=== PATIENT | female | born 1985 | race Caucasian/White ===

== ENCOUNTER 2022-04-04 10:18 | Outpatient (REF) | payer BC, SELFPAY ==
[2022-04-04 14:00] LABS: Hematocrit 40.5 % (37.0-47.0); Hemoglobin 13.4 g/dl (12.0-16.0); Mean Corpuscular HGB Conc 33.1 g/dl (31.0-35.0); Mean Corpuscular Hemoglobin 30.5 pg (27.0-33.0); Mean Platelet Volume 11.3 fL (9.4-12.3); Platelet Count 245 X10*3/uL (160-400); White Blood Count 6.5 X10*3/uL (4.8-10.8)
[2022-04-04 14:39] LABS: Alanine Aminotransferase 17 U/L (0-31); Albumin Level 4.5 g/dL (3.5-5.0); Alkaline Phosphatase 58 U/L (39-117); Anion Gap 11 (12-20); Aspartate Amino Transferase 15 U/L (5-31); Bilirubin Total 0.5 mg/dL (0.0-1.0); Blood Urea Nitrogen 10 mg/dL (9-16); Calcium 9.3 mg/dL (8.4-10.2); Carbon Dioxide 25 mmol/L (22-29); Chloride 108 mmol/L (96-108); Cholesterol 149 mg/dL; Estimated Glomerular Filt Rate > 60; Glucose Fasting 89 mg/dL (60-99); HDL Cholesterol 53 mg/dL; LDL Cholesterol Calculated 84 mg/dl; Potassium 4.4 mmol/L (3.3-5.1); Sodium 140 mmol/L (135-145); TSH reflex Free T4 1.01 uIU/mL (0.32-4.0); Total Protein 7.1 g/dL (6.5-8.0); Triglycerides 62 mg/dL
== END 2022-04-04 10:19 | disposition home or self-care (01) ==
LOC: HO.WFDLDS 10:18
PROVIDERS: Visit Provider Internal Medicine
DX: Z00.00 Encounter for general adult medical examination without abnormal findings (principal)
CPT/HCPCS: 36415; 80053; 80061; 84443; 85027

== ENCOUNTER 2023-02-17 14:00 | Outpatient (AMB) | payer BC, SELFPAY ==
[2023-02-17 14:02] VITALS: BP 110/76; PULSE 81; O2SAT 96; BMI 26.1
--- NOTE | 2023-02-17 14:02 | MHC.PC.OV ---
Vital Signs 02/17/23 14:02 Height 5 ft 5 in Weight 157 lb BMI 26.1 BP 110/76 Blood Pressure Location Lt brachial Position Sitting Pulse 81 Pulse Source Pulse Oximeter Pulse Oximetry (%) 96 Oxygen Delivery Method Room Air Intake Visit Reasons: discuss mental health Intake Note: Pt is here today for a follow up visit. Allergies No Known Allergies Allergy (Verified 02/17/23 14:04) Medication List - Last Reconciled 02/17/23 by Gilma Jacobs MD ketoconazole 2% 1 appl topical multivitamin (Daily Multi-Vitamin tablet) 1 tab PO DAILY norethindrone acetate mg PO sertraline 50 mg PO DAILY Tobacco use date assessed: 02/17/23 Dental Screening Dental Screen Date: 02/17/23 Did you have a dental visit in the last 12 months?: Yes Did you have a dental problem in the last 6 months where you did not have access to dental care?: No Was dental information given to patient?: Patient has dentist HPI discuss mental health HPI Details Pt presents for f/u anxiety, improved on Zoloft PFSH Medical History Annual physical exam Headache Left eye pain Family History Father No problems noted. Mother No problems noted. 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 Silverio Madrigal, Jessenia Amor, Lucas Bishop and colleagues, with an educational judith from [employer]. Review of Systems Const All systems reviewed & are unremarkable except as noted in HPI and below Reports no additional complaints Eyes Reports no additional complaints ENT Reports no additional complaints Card Reports no additional complaints Resp Reports no additional complaints GI Reports no additional complaints Physical exam (Primary Care) Vital Signs: Last Vital Signs Pulse 81 02/17/23 14:02 BP 110/76 02/17/23 14:02 Pulse Ox 96 02/17/23 14:02 Oxygen Delivery Method Room Air 02/17/23 14:02 BMI result Body Mass Index 26.1 Tobacco/Smoking Status: Tobacco use Status Tobacco use date assessed 02/17/23 02/17/23 14:06 Patient Tobacco Use Status Never used Tobacco 02/17/23 14:06 e-Cigarette/Vaping Use Never Used 02/17/23 14:06 Thrive Assessment: Date of Thrive Assessment Date Thrive assessed 09/14/21 02/17/23 14:06 Const General: no acute distress HENMT Mouth: Normal oral and palatal mucosa present Neck Neck: Yes no lymphadenopathy and Yes supple Resp Effort & Inspection: normal respiratory effort Auscultation: clear to auscultation bilaterally Cardio Rhythm: regular rhythm Heart sounds: S1 normal heart sound present and S2 normal heart sound present GI Inspection: Yes normal to inspection Assessment and Plan Assessment & Plan (1) Anxiety: Code(s): F41.9 - Anxiety disorder, unspecified Plan: cont Zoloft, return for PE in 6 months (2) Annual physical exam: Code(s): Z00.00 - Encounter for general adult medical examination without abnormal findings Orders: Orders Complete Blood Count Auto Diff 6 Months F41.9 - Anxiety disorder, unspecified, Z00.00 - Encounter for general adult medical examination without abnormal findings Lipid Panel 6 Months F41.9 - Anxiety disorder, unspecified, Z00.00 - Encounter for general adult medical examination without abnormal findings Comprehensive [place]. Panel Fast 6 Months F41.9 - Anxiety disorder, unspecified, Z00.00 - Encounter for general adult medical examination without abnormal findings Medications: Refilled sertraline 50 mg PO DAILY 90 tabs 3RF Coding Level of Care Code Est Pt Level 3 (69817) Diagnoses Anxiety F41.9 Annual physical exam Z00.00
== END 2023-02-17 15:22 | disposition home or self-care (01) ==
PROVIDERS: PCP Internal Medicine; Visit Provider Internal Medicine
DX: F41.9 Anxiety disorder, unspecified (principal); Z00.00 Encounter for general adult medical examination without abnormal findings
CPT/HCPCS: 99213

== ENCOUNTER 2023-08-17 07:32 | Outpatient (AMB) | payer BC, SELFPAY ==
--- NOTE | 2023-08-17 07:44 | MHC.PC.OV ---
Vital Signs 08/17/23 07:47 Height 5 ft 5 in Weight 164 lb BMI 27.3 BP 110/70 Blood Pressure Location Rt brachial Position Sitting Pulse 78 Pulse Source Pulse Oximeter Pulse Oximetry (%) 98 Oxygen Delivery Method Room Air Intake Visit Reasons: Annual PE OVERDUE Intake Note: Patient here for physical exam. pt would like to talk about weight gain. Pap: scheduled in 2 weeks. Allergies No Known Allergies Allergy (Verified 08/17/23 07:48) Medication List - Last Reconciled 08/17/23 by Gilma Jacobs MD cetirizine (Zyrtec) 10 mg PO DAILY PRN ketoconazole 2% 1 appl topical norethindrone acetate mg PO sertraline 50 mg PO DAILY Tobacco use date assessed: 08/17/23 Dental Screening Dental Screen Date: 08/17/23 Did you have a dental visit in the last 12 months?: Yes Did you have a dental problem in the last 6 months where you did not have access to dental care?: No Was dental information given to patient?: Patient has dentist HPI Annual PE OVERDUE HPI Details Pt presents for PE. Patient is concerned about gaining 10 lb since her last 4 years ago and has not been able to lose it. She has been exercising on and off and eating well-balanced diet. Patient joined weight watchers 1 month ago but has not lost any weight yet. Chronic anxiety and depression is controlled on sertraline [facility] Medical History Headache Annual physical exam Left eye pain Family History Father No problems noted. Mother No problems noted. 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 How often do you have a drink containing alcohol?: Monthly or less 2. How many drinks containing alcohol do you have on a typical day when you are drinking?: 1 or 2 3. How often do you have six or more drinks on one occasion?: Never Total Score: 1 Score Reviewed/Action Taken: No SILVIO-7 AMB Questionnaire SILVIO-7 Date SILVIO - 7 assessed: 09/14/21 Source: Developed by Drs. Silverio Madrigal, Jessenia Amor, Lucas Bishop and colleagues, with an educational judith from [employer]. Review of Systems Const All systems reviewed & are unremarkable except as noted in HPI and below Reports no additional complaints Eyes Reports no additional complaints ENT Reports no additional complaints Card Reports no additional complaints Resp Reports no additional complaints GI Reports no additional complaints Reports no additional complaints Physical exam (Primary Care) Vital Signs: Last Vital Signs Pulse 78 08/17/23 07:47 BP 110/70 08/17/23 07:47 Pulse Ox 98 08/17/23 07:47 Oxygen Delivery Method Room Air 08/17/23 07:47 BMI result Body Mass Index 27.3 Tobacco/Smoking Status: Tobacco use Status Tobacco use date assessed 08/17/23 08/17/23 07:51 Patient Tobacco Use Status Never used Tobacco 08/17/23 07:51 e-Cigarette/Vaping Use Never Used 08/17/23 07:51 Thrive Assessment: Date of Thrive Assessment Date Thrive assessed 09/14/21 08/17/23 07:51 Const General: no acute distress HENMT Head: Yes normal to inspection Ears: hearing grossly normal bilaterally Face and sinus: Yes normal facial exam Mouth: Normal oral and palatal mucosa present Teeth and gingiva: dentition normal Throat: Yes posterior oropharynx normal Eyes General: appearance normal, both eyes and all related structures Neck Neck: Yes no lymphadenopathy and Yes supple Resp Effort & Inspection: normal respiratory effort Auscultation: clear to auscultation bilaterally Cardio Rhythm: regular rhythm Heart sounds: S1 normal heart sound present and S2 normal heart sound present GI Inspection: Yes normal to inspection Palpation (GI): Soft to palpation Percussion: Yes normal to percussion Auscultation: normal bowel sounds Assessment and Plan Assessment & Plan (1) Annual physical exam: Code(s): Z00.00 - Encounter for general adult medical examination without abnormal findings Plan: Well-balanced diet regular physical activity discussed with the patient. Counseling and mindfulness for chronic anxiety discussed with the patient. She follows up with email marketing manager for a Pap smear. Patient will return for fasting blood work. Physical in 1 year or p.r.n. Orders: Orders Comprehensive [place]. Panel Fast Today Z00.00 - Encounter for general adult medical examination without abnormal findings Lipid Panel Today Z. - Encounter for general adult medical examination without abnormal findings Comprehensive [place]. Panel Fast 1 Year Z. - Encounter for general adult medical examination without abnormal findings Lipid Panel 1 Year Z. - Encounter for general adult medical examination without abnormal findings TSH reflex Free T4 1 Year Z. - Encounter for general adult medical examination without abnormal findings Complete Blood Count Auto Diff Today Z00.00 - Encounter for general adult medical examination without abnormal findings TSH reflex Free T4 Today Z.00 - Encounter for general adult medical examination without abnormal findings Vitamin D 25-OH Total Today Z00.00 - Encounter for general adult medical examination without abnormal findings Complete Blood Count Auto Diff 1 Year Z00.00 - Encounter for general adult medical examination without abnormal findings Vitamin D 25-OH Total 1 Year Z00.00 - Encounter for general adult medical examination without abnormal findings Medications: Refilled sertraline 50 mg PO DAILY 90 tabs 3RF Coding Level of Care Code New Pt Prev Care 18-39yr(50137 Diagnoses Annual physical exam Z00.00
[2023-08-17 07:47] VITALS: BP 110/70; PULSE 78; O2SAT 98; BMI 27.3
== END 2023-08-17 08:19 | disposition home or self-care (01) ==
PROVIDERS: PCP Internal Medicine; Visit Provider Internal Medicine
DX: Z00.00 Encounter for general adult medical examination without abnormal findings (principal)
CPT/HCPCS: 99395

== ENCOUNTER 2023-08-17 08:20 | Outpatient (REF) | payer BC, SELFPAY ==
[2023-08-17 10:20] LABS: MANUAL DIFF FLAG NO
[2023-08-17 10:24] LABS: Basophils Absolute Auto 0.1 X10*3/uL (0.0-0.2); Basophils Percent Auto 0.7 % (0-2); Eosinophils Absolute Auto 0.1 X10*3/uL (0.0-0.4); Eosinophils Percent Auto 1.9 % (0-4); Hematocrit 43.5 % (37.0-47.0); Hemoglobin 14.7 g/dl (12.0-16.0); Imm Gran Abs Auto 0.02 X10*3/uL (0.00-0.03); Imm Gran Pct Auto 0.3 % (0.0-0.4); Lymphocytes Absolute Auto 2.8 X10*3/uL (1.2-4.9); Lymphocytes Percent Auto 40.2 % (20-40); Mean Corpuscular HGB Conc 33.8 g/dl (31.0-35.0); Mean Corpuscular Hemoglobin 31.7 pg (27.0-33.0); Monocytes Absolute Auto 0.4 X10*3/uL (0.1-1.2); Monocytes Percent Auto 6.3 % (2-11); Neutrophils Absolute Auto 3.5 x10*3/uL (2.0-8.3); Neutrophils Percent Auto 50.6 % (45-73); Platelet Count 266 X10*3/uL (160-400); Red Blood Count 4.63 X10*6/uL (4.20-5.50); Red Cell Distribution Width 12.5 % (11.0-16.0); White Blood Count 6.9 X10*3/uL (4.8-10.8)
[2023-08-17 11:12] LABS: Alanine Aminotransferase 27 U/L (0-31); Albumin Level 4.5 g/dL (3.5-5.0); Alkaline Phosphatase 83 U/L (39-117); Anion Gap 12 (12-20); Aspartate Amino Transferase 23 U/L (5-31); Bilirubin Total 0.6 mg/dL (0.0-1.0); Blood Urea Nitrogen 12 mg/dL (9-16); Calcium 9.7 mg/dL (8.4-10.2); Carbon Dioxide 25 mmol/L (22-29); Chloride 107 mmol/L (96-108); Cholesterol 177 mg/dL (<200); Estimated Glomerular Filt Rate > 60; Glucose Fasting 95 mg/dL (60-99); HDL Cholesterol 51 mg/dL (>40); LDL Cholesterol Calculated 106 mg/dL (<100); Potassium 4.3 mmol/L (3.3-5.1); Sodium 140 mmol/L (135-145); TSH reflex Free T4 1.34 uIU/mL (0.32-4.0); Total Protein 7.5 g/dL (6.5-8.0); Triglycerides 102 mg/dL (<150); Vitamin D 25-OH Total 51.4 ng/mL (>30)
== END 2023-08-17 08:21 | disposition home or self-care (01) ==
LOC: HO.HMGCLDS 08:20
PROVIDERS: PCP Internal Medicine; Visit Provider Internal Medicine
DX: Z00.00 Encounter for general adult medical examination without abnormal findings (principal); Z13.6 Encounter for screening for cardiovascular disorders; F41.9 Anxiety disorder, unspecified
CPT/HCPCS: 36415; 80053; 80061; 82306; 84443; 85025

== ENCOUNTER 2023-10-26 15:38 | Outpatient (AMB) | payer BC, SELFPAY ==
[2023-10-26 15:54] VITALS: BP 120/80; PULSE 74; TEMP 36.8; O2SAT 98
--- NOTE | 2023-10-26 15:54 | AM.OFFWIN_ITS ---
Intake Vital Signs 10/26/23 15:54 Height 5 ft 5 in BP 120/80 Blood Pressure Location Rt brachial Position Sitting Pulse 74 Pulse Source Pulse Oximeter Temp 98.3 F Temp Source Oral Pulse Oximetry (%) 98 Oxygen Delivery Method Room Air Intake Visit Reasons: EP Shaky, fatigue, bp, dizzy, arm feel heavy Intake Note: pt is here for shakiness, fatigue, states high blood pressure readings Patient Tobacco Use Status: Never used Tobacco Allergies No Known Allergies Allergy (Verified 10/26/23 15:55) Do you need a note to return to daycare/school/sports/work: No HPI HPI Comments History of Present Illness Details 38 y/o female patient who [facility] with c/o elevated BP readings associated with feeling fatigued and Arm heavyness. Pt reports feeling anxious all the time. Pt reports feeling dizzy. Pt was seen and evaluated @ [facility]. EKG and Troponin WNL. Thyroid levels WNL. Pt does endorse Anxiety history and currently takes Sertraline. [facility] Medical History (Updated 10/26/23 @ 16:59 by Rosalind Mcgregor NP) Elevated blood pressure reading in office without diagnosis of hypertension Headache Annual physical exam Left eye pain Family History Father No problems noted. Mother No problems noted. 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, teacher Housing: House Patient Tobacco Use Status: Never used Tobacco e-Cigarette/Vaping Use: Never Used Second Hand Smoke Exposure: No Current occupational status: employed Cognitive needs: No Hearing needs: No Vision needs: Yes Review of Systems Const All systems reviewed & are unremarkable except as noted in HPI and below Physical Exam Vital Signs: Last Vital Signs Temp 98.3 F 10/26/23 15:54 Pulse 74 10/26/23 15:54 BP 120/80 10/26/23 15:54 Pulse Ox 98 10/26/23 15:54 Oxygen Delivery Method Room Air 10/26/23 15:54 Const General: comfortable and no acute distress Nutritional Appearance: overweight Orientation/consciousness: patient oriented x3 Resp Effort & Inspection: normal respiratory effort Auscultation: clear to auscultation bilaterally, no crackles, no rales, no rhonchi and no wheezes Cardio Rate: regular rate Rhythm: regular rhythm Neuro General: patient oriented x3, gait normal and moves all extremities Psych Speech and movement: Normal speech and movement present Affect: normal affect Attitude: cooperative Assessment & Plan Assessment & Plan (1) Anxiety: Code(s): F41.9 - Anxiety disorder, unspecified Plan: - Advised to F/U with PCP for medication changes if indicated. - Recomm Mental health therapy. - Denies SA or SI (2) Elevated blood pressure reading in office without diagnosis of hypertension: Code(s): R03.0 - Elevated blood-pressure reading, without diagnosis of hypertension Plan: - Advised to monitor BP at home and keep Log - F/u with PCP if Treatment is indicated. - Lifestyle changes - DASH diet. Coding Level of Care Code Est Pt Level 3 (46419) Diagnoses Anxiety F41.9 Elevated blood pressure reading in office without diagnosis of hypertension R03.0 Time Spent (min) 15
== END 2023-10-26 16:35 | disposition home or self-care (01) ==
PROVIDERS: PCP Internal Medicine; Visit Provider Nurse Practitioner Family
DX: F41.9 Anxiety disorder, unspecified (principal); R03.0 Elevated blood-pressure reading, without diagnosis of hypertension
CPT/HCPCS: 99213

== ENCOUNTER 2023-11-27 13:59 | Outpatient (AMB) | payer BC, SELFPAY ==
--- NOTE | 2023-11-27 14:01 | A.OFFPC_ITS ---
Vital Signs 11/27/23 14:02 Height 5 ft 5 in Weight 169 lb BMI 28.1 BP 128/80 Blood Pressure Location Lt brachial Position Sitting Pulse 65 Pulse Source Pulse Oximeter Pulse Oximetry (%) 98 Oxygen Delivery Method Room Air Intake Visit Reasons: ER follow up Intake Note: Pt is here today for ER follow up visit. Allergies misoprostol Allergy (Verified 11/27/23 14:05) high fever Tobacco use date assessed: 08/17/23 Dental Screening Dental Screen Date: 08/17/23 HPI ER follow up HPI Details Patient presents for the follow-up of ER visit for increase blood pressure. Patient has been under lot of stress her grandmother is on hospice. Patient has been exercising for the last 2 weeks and denies chest pain shortness or breath headaches. She has been monitor her blood pressure at home with readings of 120/80 or less. Anxiety has been controlled on sertraline. [facility] Medical History Elevated blood pressure reading in office without diagnosis of hypertension Headache Annual physical exam Left eye pain Surgical History No pertinent past surgical history Family History Father No problems noted. Mother No problems noted. 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 Silverio Madrigal, Jessenia Amor, Lucas Bishop and colleagues, with an educational judith from [employer]. Review of Systems Const All systems reviewed & are unremarkable except as noted in HPI and below Reports no additional complaints Eyes Reports no additional complaints ENT Reports no additional complaints Card Reports no additional complaints Resp Reports no additional complaints GI Reports no additional complaints Physical exam (Primary Care) Vital Signs: Last Vital Signs Pulse 65 11/27/23 14:02 BP 128/80 11/27/23 14:02 Pulse Ox 98 11/27/23 14:02 Oxygen Delivery Method Room Air 11/27/23 14:02 BMI result Body Mass Index 28.1 Tobacco/Smoking Status: Tobacco use Status Tobacco use date assessed 08/17/23 11/27/23 14:02 Patient Tobacco Use Status Never used Tobacco 11/27/23 14:02 e-Cigarette/Vaping Use Never Used 11/27/23 14:02 Thrive Assessment: Date of Thrive Assessment Date Thrive assessed 09/14/21 11/27/23 14:02 Const General: no acute distress HENMT Head: Yes normal to inspection Ears: hearing grossly normal bilaterally General nose exam: Normal external nose present Face and sinus: Yes normal facial exam Mouth: Normal oral and palatal mucosa present Throat: Yes posterior oropharynx normal Eyes General: appearance normal, both eyes and all related structures Neck Neck: Yes no lymphadenopathy and Yes supple Resp Effort & Inspection: normal respiratory effort Auscultation: clear to auscultation bilaterally Cardio Rhythm: regular rhythm Heart sounds: S1 normal heart sound present and S2 normal heart sound present Assessment and Plan Assessment & Plan (1) Elevated blood pressure reading in office without diagnosis of hypertension: Code(s): R03.0 - Elevated blood-pressure reading, without diagnosis of hypertension Plan: Continue regular cardiovascular exercise avoid salt and monitor blood pressure at home (2) Anxiety: Comment: Controlled on sertraline Code(s): F41.9 - Anxiety disorder, unspecified Plan: Continue sertraline Coding Level of Care Code Est Pt Level 3 (81612) Diagnoses Elevated blood pressure reading in office without diagnosis of hypertension R03.0 Anxiety F41.9
[2023-11-27 14:02] VITALS: BP 128/80; PULSE 65; O2SAT 98; BMI 28.1
== END 2023-11-27 14:27 | disposition home or self-care (01) ==
PROVIDERS: PCP Internal Medicine; Visit Provider Internal Medicine
DX: R03.0 Elevated blood-pressure reading, without diagnosis of hypertension (principal); F41.9 Anxiety disorder, unspecified
CPT/HCPCS: 99213

== ENCOUNTER 2024-06-17 06:53 | Outpatient (REF) | payer BC, SELFPAY ==
--- OUTSIDE RECORDS SUMMARY | 2024-06-17 06:56 | XMS_ITS | Clinical Summary ---
Author Organization [address] Address [address] [place] [id number] Care Team Providers Care Peer Financial Counselor Name Role Phone Gilma Jacobs MD Primary Care Provider Allergies No known active allergies Medications sertraline (ZOLOFT) 50 mg tablet Take 1 tablet (50 mg total) by mouth daily. 11/26/2023 Active NURTEC ODT 75 mg TbDL TAKE 1 TABLET EVERY 24 HOURS NEEDED FOR MIGRAINE HEADACHE NOT TO EXCEED 75 MG IN 24 HOURS 01/20/2024 Active norethindrone (AYGESTIN) 5 mg tablet Take 1 tablet (5 mg total) by mouth daily. 12/16/2023 Active Active Problems Problem Noted Date Diagnosed Date Acute non-recurrent frontal sinusitis 02/02/2024 Social History Tobacco Use Types Packs/Day Years Used Date Smoking Tobacco: Never Smokeless Tobacco: Never Alcohol Use Standard Drinks/Week Comments Not Currently 0 (1 standard drink = 0.6 oz pur e alcohol) Comments Unknown Sex and Gender Information Value Date Recorded Sex Assigned at Not on file Legal Sex Female 9:46 AM EDT Gender Identity Not on file Sexual Orientation Not on file Last Filed Vital Signs Vital Sign Reading Time Taken Comments Blood Pressure 134/92 02/02/2024 12:51 PM EDT Pulse 80 02/02/2024 12:51 PM EDT Temperature 36.8 ??C (98.3 ??F) 02/02/2024 12:51 PM E DT Respiratory Rate 16 02/02/2024 12:51 PM EDT Oxygen Saturation 100% 02/02/2024 12:51 PM EDT Inhaled Oxygen Concentration - - Weight 74.8 kg (165 lb) 02/02/2024 12:51 PM EDT Height 165.1 cm (5' 5 ) 02/02/2024 12:51 PM EDT Body Mass Index 27.46 02/02/2024 12:51 PM EDT Plan of Treatment Health Maintenance Due Date Last Done Comments HIV screening 01/25/1997 Hepatitis C screening 01/25/2002 Cervical cancer screening 01/25/2005 Influenza vaccine 12/14/2023 02/17/2020, , 01/29/2018, Additional history exists Covid-19 vaccine series ( season) 2024 Breast cancer screening 2024 Lipid disorder screening 2024 Tetanus adult (Td q 10,TDAP once) 02/16/2030 02/17/2020, 07/31/2013 RSV Discussion (1 - 1-dose 75+ series) 01/25/2059 Meningococcal Vaccine Aged Out No jeffery tyesha eligible based on patient's age to complete this topic Pneumococcal Vaccine Aged Out No long er eligible based on patient's age to complete this topic Insurance BCBS BCBS Member Subscriber Plan / Payer (Ef fective 2016-Present) Name:Dominic Morris Relation to Subscriber:Self Name:Dominic Morris Payer ID:[id number] (NAIC) Type:Not on file Address: [facility] [address] [id number] Care Teams Peer Financial Counselor Relationship Specialty Start Date End Date Gilma Jacobs MD [facility] [place] [address] [place] [address] PCP - General Internal Medicine 02/02/24
--- OUTSIDE RECORDS SUMMARY | 2024-06-17 06:56 | XMS_ITS | Clinical Summary ---
Author Organization [facility] Address [address] [place] [address] Care Team Providers Care Service Vehicle Operator Name Role Phone Gilma Jacobs MD Primary Care Provider [phone] Allergies No known active allergies Medications Medication Sig Dispensed Refills Start Date End Date Status Multiple Vitamin (multivitamin) capsule Take 1 capsule by mouth daily. Active norethindrone (AYGESTIN) 5 MG tablet Take 5 mg by mouth daily. 10/19/2022 Active sertraline (ZOLOFT) 50 MG tablet Take 50 mg by mouth daily. 11/16/2022 Active Social History Tobacco Use Types Packs/Day Years Used Date Smoking Tobacco: Never Assessed Sex and Gender Information Value Date Recorded Sex Assigned at Not on file Gender Identity Not on file Sexual Orientation Not on file Last Filed Vital Signs Vital Sign Reading Time Taken Comments Blood Pressure 130/88 12/01/2022 6:58 PM EDT Pulse 84 12/01/2022 6:58 PM EDT Temperature 37.4 ??C (99.4 ??F) 12/01/2022 6:58 PM ED T Respiratory Rate - - Oxygen Saturation 97% 12/01/2022 6:58 PM EDT Inhaled Oxygen Concentration - - Weight 70.3 kg (155 lb) 12/01/2022 6:58 PM EDT Height 165.1 cm (5' 5 ) 12/01/2022 6:58 PM EDT Body Mass Index 25.79 12/01/2022 6:58 PM EDT Plan of Treatment Health Maintenance Due Date Last Done Comments Hepatitis C Virus Screening 1984 HIV Screening 01/25/1997 DTaP/Tdap/Td Vaccines (1 - Tdap) 01/25/2003 Hepatitis B Vaccines (1 of 3 - 19+ 3-dose series) 01/25/2003 Pap Smear (Ages 21-65) 01/25/2005 Influenza Vaccine 12/14/2023 02/17/2020, , 01/29/2018, Additional history exists COVID-19 Vaccine (2023- season) 2024 Mammogram 2024 HPV Vaccines Aged Out No longer eligi ble based on patient's age to complete this topic Pneumococcal Vaccine: Pediatric (0-5 Years) and At-Risk Patients (6 to 49 Years) Aged Out No longer eligible based on patient's age to complete this topic Care Teams Service Vehicle Operator Relationship Specialty Start Date End Date Gilma Jacobs MD [address] [place] [address] PCP - General 12/01/22
--- OUTSIDE RECORDS SUMMARY | 2024-06-17 06:56 | XMS_ITS ---
Author Name [facility] Organization Unknown History of Medication Use Medication Directions Dispensed Refills Start Date End Date Stat us sertraline (ZOLOFT) 50 MG tablet Take 50 mg by mouth daily. 11/16/2022 active rimegepant (Nurtec) 75 mg disintegrating tablet Take 75 mg by mouth. 07/21/2022 03/24/2023 active sertraline (ZOLOFT) 50 mg tablet Take 1 tablet (50 mg total) by mouth daily. 11/26/2023 active Multiple Vitamin (multivitamin) capsule Take 1 capsule by mouth daily. active Problems Problem Status Onset Date Problem Type Date of Resoluti on Source Acute non-recurrent frontal sinusitis active 2024-02-02 [address] [facility] Sore throat active EncounterDiagnosisAct CCT
[2024-06-17 10:25] LABS: MANUAL DIFF FLAG NO
[2024-06-17 10:26] LABS: Appearance Urine Cloudy; Color Urine Yellow; Glucose Urine UA Negative (Negative); Leukocyte Esterase Urine Negative (Negative); Nitrite Urine Negative (Negative); Urine Blood Negative (Negative); Urine Ketones Negative (Negative); Urine Protein Negative (Neg-Trace)
[2024-06-17 10:30] LABS: Bacteria Urine 2+ (None Seen); Hyaline Casts Urine 0-2 /LPF (0-2); RBC Urine 0-2 /HPF (0-2); Squamous Epithelial Cell Urine >20 /HPF (0-2); WBC Urine 0-5 /HPF (0-5)
[2024-06-17 10:31] LABS: Basophils Absolute Auto 0.1 X10*3/uL (0.0-0.2); Basophils Percent Auto 0.7 % (0-2); Eosinophils Absolute Auto 0.2 X10*3/uL (0.0-0.4); Eosinophils Percent Auto 2.9 % (0-4); Hemoglobin 13.7 g/dl (12.0-16.0); Imm Gran Abs Auto 0.02 X10*3/uL (0.00-0.03); Imm Gran Pct Auto 0.3 % (0.0-0.4); Lymphocytes Absolute Auto 2.9 X10*3/uL (1.2-4.9); Lymphocytes Percent Auto 42.1 % (20-40); Mean Corpuscular HGB Conc 34.3 g/dl (31.0-35.0); Mean Corpuscular Hemoglobin 31.3 pg (27.0-33.0); Mean Corpuscular Volume 91.3 fL (80.0-98.0); Mean Platelet Volume 11.1 fL (9.4-12.3); Monocytes Absolute Auto 0.6 X10*3/uL (0.1-1.2); Monocytes Percent Auto 8.5 % (2-11); Neutrophils Absolute Auto 3.2 x10*3/uL (2.0-8.3); Neutrophils Percent Auto 45.5 % (45-73); Platelet Count 264 X10*3/uL (160-400); Red Blood Count 4.38 X10*6/uL (4.20-5.50); Red Cell Distribution Width 12.1 % (11.0-16.0); White Blood Count 6.9 X10*3/uL (4.8-10.8)
[2024-06-17 10:56] LABS: Alanine Aminotransferase 42 U/L (0-31); Albumin Level 4.1 g/dL (3.5-5.0); Alkaline Phosphatase 81 U/L (39-117); Anion Gap 9 (12-20); Aspartate Amino Transferase 27 U/L (5-31); Bilirubin Total 0.4 mg/dL (0.0-1.0); Blood Urea Nitrogen 8 mg/dL (9-16); Calcium 8.6 mg/dL (8.4-10.2); Carbon Dioxide 23 mmol/L (22-29); Chloride 112 mmol/L (96-108); Cholesterol 133 mg/dL (<200); Estimated Glomerular Filt Rate > 60; Glucose Fasting 95 mg/dL (60-99); HDL Cholesterol 37 mg/dL (>40); Iron 119 mcg/dL (30-160); LDL Cholesterol Calculated 58 mg/dL (<100); Percent Iron Saturation 55 % (15-50); Potassium 3.9 mmol/L (3.3-5.1); Sodium 140 mmol/L (135-145); Total Iron Binding Capacity 218 mcg/dL (228-428); Total Protein 6.9 g/dL (6.5-8.0); Triglycerides 194 mg/dL (<150); Unsaturated Iron Binding 99 ug/dL
[2024-06-17 11:13] LABS: TSH reflex Free T4 2.01 uIU/mL (0.32-4.0); Vitamin D 25-OH Total 63.2 ng/mL (>30)
[2024-06-17 12:35] LABS: Vitamin B12 281 pg/mL (200-900)
== END 2024-06-17 06:54 | disposition home or self-care (01) ==
LOC: HO.HMGCLDS 06:53
PROVIDERS: PCP Internal Medicine; Visit Provider Internal Medicine
DX: Z00.00 Encounter for general adult medical examination without abnormal findings (principal); R53.83 Other fatigue; R03.0 Elevated blood-pressure reading, without diagnosis of hypertension
CPT/HCPCS: 36415; 80053; 80061; 81001; 82306; 82607; 83540; 84443; 84481; 85025

== ENCOUNTER 2024-06-20 12:25 | Outpatient (REF) | payer BC, SELFPAY ==
--- OUTSIDE RECORDS SUMMARY | 2024-06-20 14:15 | XMS_ITS | Clinical Summary ---
Author Organization [facility] Address [address] [place] [address] Care Team Providers Care Director Center Name Role Phone Gilma Jacobs MD Primary Care Provider Allergies No known active allergies Medications Medication [...] age to complete this topic Care Teams Director Center Relationship Specialty Start Date End Date Gilma Jacobs MD [address] [place] [address] PCP - General 12/01/22
--- OUTSIDE RECORDS SUMMARY | 2024-06-20 14:15 | XMS_ITS | Clinical Summary ---
Author Organization [address] Address [address] [place] [id number] Care Team Providers Care Environmental Services Lead Name Role Phone Gilma Jacobs MD Primary Care Provider [phone] Allergies No known active allergies Medications sertraline [...] Payer ID:[id number] (NAIC) Type:Not on file Address: [facility] [address] [id number] Care Teams Environmental Services Lead Relationship Specialty Start Date End Date Gilma Jacobs MD [facility] [place] [address] PCP - General Internal Medicine 02/02/24
[2024-06-21 19:39] LABS: Follicle Stimulating Hormone 8.2 mIU/mL
== END 2024-06-20 12:26 | disposition home or self-care (01) ==
LOC: HO.HMGCLDS 12:25
PROVIDERS: PCP Internal Medicine; Visit Provider Internal Medicine
DX: N95.1 Menopausal and female climacteric states (principal); F41.9 Anxiety disorder, unspecified
CPT/HCPCS: 36415; 83001; 96127

== ENCOUNTER 2024-07-18 10:53 | Outpatient (AMB) | payer BC, SELFPAY ==
[2024-07-18 11:03] VITALS: BP 126/82; PULSE 87; RESP 18; TEMP 37.1; O2SAT 97
--- NOTE | 2024-07-18 11:03 | MHC.PC.OV ---
Vital Signs 07/18/24 11:03 Height 5 ft 5 in Weight 180 lb BMI 30.0 BP 126/82 Blood Pressure Location Lt brachial Position Sitting Respiration 18 Pulse 87 Pulse Source Pulse Oximeter Temp 98.7 F Temp Source Oral Pulse Oximetry (%) 97 Oxygen Delivery Method Room Air Intake Visit Reasons: 1m follow up Intake Note: Pt is here today for 1 month follow up visit. Allergies misoprostol Allergy (Verified 07/18/24 11:06) high fever Medication List - Last Reconciled 07/18/24 by Gilma Jacobs MD cetirizine (Zyrtec) 10 mg PO DAILY PRN norethindrone acetate mg PO sertraline 75 mg (1.5 x 50 mg) PO DAILY Wegovy (semaglutide (weight loss)) 0.25 mg (0.5 mL) subcut QWEEK NS Tobacco use date assessed: 06/20/24 Dental Screening Dental Screen Date: 06/20/24 HPI 1m follow up HPI Details Pt presents for follow-up of chronic anxiety and depression. She reports feeling calmer on sertraline but reports episodes of feeling angry about her inability to lose weight despite exercising and eating well-balanced diet for over 6 months. Patient has been trying to established with psychologist. She denies suicide ideation. [facility] Medical History Elevated blood pressure reading in office without diagnosis of hypertension Headache Annual physical exam Left eye pain Surgical History No pertinent past surgical history Family History Father No problems noted. Mother No problems noted. 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 1. Little interest or pleasure in doing things: more than half the days 2. Feeling down, depressed, or hopeless: more than half the days 3. Trouble falling or staying asleep, or sleeping too much: more than half the days 4. Feeling tired or having little energy: more than half the days 5. Poor appetite or overeating: several days 6. Feeling bad about yourself - or that you are a failure or have let yourself or your family down: more than half the days 7. Trouble concentrating on things, such as reading the newspaper or watching television: several days 8. Moving or speaking so slowly that other people could have noticed. Or the opposite - being so fidgety or restless that you have been moving around a lot more than usual: several days 9. Thoughts that you would be better off or of hurting yourself in some way: not at all Total score: 13 Depression Screening Interpretation: Positive (Referred to a counselor continue sertraline) Depression Screening Follow-up: Existing condition and In treatment Depression Screening Done: Yes 01826 - PHQ-9 Billing: Yes Source: Developed by Drs. Silverio Madrigal, Jessenia Amor, Lucas Bishop and colleagues, with an educational judith from [employer]. Thrive Questionnaire Date Thrive assessed: 06/13/24 I am a: Patient What is your living situation today?: I have a steady place to live Within the past 12 months, did the food you bought not last and you didn't have the money to get more?: Never true Within the past 12 months, did you worry whether your food would run out before you got money to buy more?: Never true Do you have trouble paying for medicines?: No Do you have trouble getting transportation to medical appointments?: No Do you have trouble paying your heating and electricity bill?: No Do you have trouble taking care of your child, family member or friend?: No Do you have trouble with day-to-day activities such as bathing, preparing meals, shopping, managing finances, etc.?: No Are you currently unemployed and looking for a job?: No Are you interested in more education?: No Please select the resources that you would like help with: None Currently or been in a relationship where the following occur: No concerns reported THRIVE Score: 0 SILVIO-7 AMB Questionnaire SILVIO-7 Date SILVIO - 7 assessed: 06/20/24 Source: Developed by Drs. Silverio Madrigal, Jessenia Amor, Lucas Bishop and colleagues, with an educational judith from [employer]. Review of Systems Const All systems reviewed & are unremarkable except as noted in HPI and below Eyes Reports no additional complaints ENT Reports no additional complaints Card Reports no additional complaints Resp Reports no additional complaints GI Reports no additional complaints Reports no additional complaints Physical exam (Primary Care) Vital Signs: Last Vital Signs Temp 98.7 F 07/18/24 11:03 Pulse 87 07/18/24 11:03 Resp 18 07/18/24 11:03 BP 126/82 07/18/24 11:03 Pulse Ox 97 07/18/24 11:03 Oxygen Delivery Method Room Air 07/18/24 11:03 BMI result Body Mass Index 30.0 Tobacco/Smoking Status: Tobacco use Status Tobacco use date assessed 06/20/24 07/18/24 11:09 Patient Tobacco Use Status Never used Tobacco 07/18/24 11:09 e-Cigarette/Vaping Use Never Used 07/18/24 11:09 PHQ-9: PHQ-9 Score PHQ-9: Total score 13 07/18/24 12:13 Depression Screening Interpretation: Positive (Referred to a counselor continue sertraline) Depression Screening Follow-up: Existing condition and In treatment Thrive Assessment: Date of Thrive Assessment Date Thrive assessed 06/13/24 07/18/24 11:09 Currently or been in a relationship where the following occur: No concerns reported Const General: no acute distress HENMT Face and sinus: Yes normal facial exam Resp Effort & Inspection: normal respiratory effort Auscultation: clear to auscultation bilaterally Cardio Rhythm: regular rhythm Heart sounds: S1 normal heart sound present and S2 normal heart sound present Coding Level of Care Code Est Pt Level 3 (71632) Diagnoses Anxiety F41.9 Overweight E66.3 Additional Codes PHQ-9 - 51980 - PHQ-9 Billing: Yes ([id number]) Assessment & Plan Assessment & Plan (1) Anxiety: Comment: Controlled on sertraline Code(s): F41.9 - Anxiety disorder, unspecified Category: Medical Plan: CONTINUE SERTRALINE START COUNSELING, stress management discussed with the patient. (2) Overweight: Comment: BMI 30.1 06/2024 Code(s): E66.3 - Overweight Category: Medical Plan: She has has not been able to lose weight despite decreasing caloric intake and increasing physical activity for over 6 months. Wegovy 0.25 weekly will be started patient will follow-up in 1 month Medications: New Wegovy (semaglutide (weight loss)) administer weeks 1 through 4 of therapy 0.25 mg (0.5 mL) subcut QWEEK 2 mL 1RF NS
--- OUTSIDE RECORDS SUMMARY | 2024-07-18 13:11 | XMS_ITS | Clinical Summary ---
Author Organization [address] Address [address] [place] [id number] Care Team Providers Care Flight Controls Engineer Name Role Phone Gilma Jacobs MD Primary Care Provider [phone] Allergies No known active allergies Medications sertraline [...] age to complete this topic Pneumococcal Vaccine (2 - 49 years) Aged Out No longer eligible based on patient's age to complete this topic Insurance BCBS BS Care Teams Flight Controls Engineer Relationship Specialty Start Date End Date Gilma Jacobs MD [facility] [place] [id number] PCP - General Internal Medicine 02/02/24
--- OUTSIDE RECORDS SUMMARY | 2024-07-18 13:11 | XMS_ITS | Clinical Summary ---
Author Organization [facility] Address [address] [place] [address] Care Team Providers Care Final Touch Up Painter Name Role Phone Gilma Jacobs MD Primary Care Provider [phone] Allergies No known active allergies Medications Medication [...] age to complete this topic Care Teams Final Touch Up Painter Relationship Specialty Start Date End Date Gilma Jacobs MD [address] [place] [address] PCP - General 12/01/22
== END 2024-07-18 12:48 | disposition home or self-care (01) ==
PROVIDERS: PCP Internal Medicine; Visit Provider Internal Medicine
DX: F41.9 Anxiety disorder, unspecified (principal); E66.3 Overweight

== ENCOUNTER → 2024-07-18 10:53 | Outpatient (BNVA) | payer BC, SELFPAY | PROVIDERS: PCP Internal Medicine; Visit Provider Internal Medicine | DX: F41.9 Anxiety disorder, unspecified (principal); E66.3 Overweight; Z68.30 Body mass index [BMI] 30.0-30.9, adult; Z79.899 Other long term (current) drug therapy | CPT/HCPCS: 96127 ==

== ENCOUNTER 2024-08-21 11:56 | Outpatient (AMB) | payer BC, SELFPAY ==
[2024-08-21 11:57] VITALS: BP 118/80; PULSE 81; RESP 18; TEMP 36.8; O2SAT 98; BMI 29.6
--- NOTE | 2024-08-21 11:57 | MHC.PC.OV ---
Vital Signs 08/21/24 11:57 Height 5 ft 5 in Weight 178 lb BMI 29.6 BP 118/80 Blood Pressure Location Lt brachial Position Sitting Respiration 18 Pulse 81 Pulse Source Pulse Oximeter Temp 98.3 F Temp Source Oral Pulse Oximetry (%) 98 Oxygen Delivery Method Room Air Intake Visit Reasons: PE Intake Note: Pt is here today for PE. Allergies misoprostol Allergy (Verified 08/21/24 11:59) high fever Tobacco use date assessed: 08/21/24 Dental Screening Dental Screen Date: 06/20/24 HPI PE HPI Details Patient presents for physical. She is has been tolerating Wegovy well. She has been decreasing caloric intake and increasing physical activity. Chronic anxiety stable on sertraline. Patient will be starting counseling. [facility] Medical History (Updated 08/21/24 @ 12:24 by Gilma Jacobs MD) Elevated blood pressure reading in office without diagnosis of hypertension Headache Annual physical exam Left eye pain Surgical History No pertinent past surgical history Family History Father No problems noted. Mother No problems noted. 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, teacher Housing: House Patient Tobacco Use Status: Never used Tobacco e-Cigarette/Vaping Use: Never Used Second Hand Smoke Exposure: No service: No Current occupational status: employed Cognitive needs: No Hearing needs: No Vision needs: Yes Questionnaire Thrive Questionnaire Date Thrive assessed: 08/21/24 I am a: Patient What is your living situation today?: I have a steady place to live Within the past 12 months, did the food you bought not last and you didn't have the money to get more?: Never true Within the past 12 months, did you worry whether your food would run out before you got money to buy more?: Never true Do you have trouble paying for medicines?: No Do you have trouble getting transportation to medical appointments?: No Do you have trouble paying your heating and electricity bill?: No Do you have trouble taking care of your child, family member or friend?: No Do you have trouble with day-to-day activities such as bathing, preparing meals, shopping, managing finances, etc.?: No Are you currently unemployed and looking for a job?: No Are you interested in more education?: No Please select the resources that you would like help with: None Currently or been in a relationship where the following occur: No concerns reported THRIVE Score: 0 SILVIO-7 AMB Questionnaire SILVIO-7 Date SILVIO - 7 assessed: 08/21/24 Feeling nervous, anxious, or on edge: 0 = Not at all Not being able to stop or control worryin = Not at all Worrying too much about different things: 0 = Not at all Trouble relaxin = Not at all Being so restless that it is hard to sit still: 0 = Not at all Becoming easily annoyed or irritable: 0 = Not at all Feeling afraid as if something awful might happen: 0 = Not at all Total SILVIO-7 score (0-4 normal; 5-9 mild; 10-14 moderate; 15-21 severe): 0 Source: Developed by Drs. Silverio Madrigal, Jessenia Amor, Lucas Bishop and colleagues, with an educational judith from [employer]. SILVIO-7 Assessment Billing SILVIO-7 Assessment Tool: SILVIO-7 Assessment 24823 Review of Systems Const All systems reviewed & are unremarkable except as noted in HPI and below Reports no additional complaints Eyes Reports no additional complaints ENT Reports no additional complaints Card Reports no additional complaints Resp Reports no additional complaints Reports no additional complaints Physical exam (Primary Care) Vital Signs: Last Vital Signs Temp 98.3 F 08/21/24 11:57 Pulse 81 08/21/24 11:57 Resp 18 08/21/24 11:57 BP 118/80 08/21/24 11:57 Pulse Ox 98 08/21/24 11:57 Oxygen Delivery Method Room Air 08/21/24 11:57 BMI result Body Mass Index 29.6 Tobacco/Smoking Status: Tobacco use Status Tobacco use date assessed 08/21/24 08/21/24 12:04 Patient Tobacco Use Status Never used Tobacco 08/21/24 12:04 e-Cigarette/Vaping Use Never Used 08/21/24 12:04 Thrive Assessment: Date of Thrive Assessment Date Thrive assessed 08/21/24 08/21/24 12:04 Currently or been in a relationship where the following occur: No concerns reported Const General: no acute distress HENMT Head: Yes normal to inspection Face and sinus: Yes normal facial exam Throat: Yes posterior oropharynx normal Eyes General: appearance normal, both eyes and all related structures Neck Neck: Yes no lymphadenopathy and Yes supple Resp Effort & Inspection: normal respiratory effort Auscultation: clear to auscultation bilaterally Cardio Rhythm: regular rhythm Heart sounds: S1 normal heart sound present and S2 normal heart sound present GI Inspection: Yes normal to inspection Palpation (GI): Soft to palpation Percussion: Yes normal to percussion Auscultation: normal bowel sounds Coding Level of Care Code Est Pt Prev Care 40-64y(04697) Diagnoses Normal pelvic exam Z01.419 Overweight E66.3 Annual physical exam Z00.00 Anxiety F41.9 Additional Codes SILVIO-7 Assessment Billing - SILVIO-7 Assessment Tool: SILVIO-7 Assessment 72622 ([id number]) Assessment & Plan Assessment & Plan (1) Normal pelvic exam: Comment: 06/2023 by chair and couch maker Code(s): Z01.419 - Encounter for gynecological examination (general) (routine) without abnormal findings Category: Medical Plan: Established with chair and couch maker (2) Overweight: Comment: BMI 30.1 06/2024 Code(s): E66.3 - Overweight Category: Medical Plan: Continue Wegovy decreasing caloric intake regular physical activity. Patient will increase Wegovy to 1 mg next month if she tolerates it well. Follow-up in 3 months (3) Annual physical exam: Code(s): Z00.00 - Encounter for general adult medical examination without abnormal findings Category: Medical Plan: Well-balanced diet regular physical activity discussed with the patient (4) Anxiety: Comment: Controlled on sertraline Code(s): F41.9 - Anxiety disorder, unspecified Category: Medical Plan: Continue sertraline patient will start counseling
--- OUTSIDE RECORDS SUMMARY | 2024-08-21 14:04 | XMS_ITS | Clinical Summary ---
Author Organization [address] Address [address] [place] [id number] Care Team Providers Care Software Project Manager Name Role Phone Gilma Jacobs MD Primary Care Provider [phone] Allergies No known active allergies Medications sertraline [...] C screening 01/25/2002 Cervical cancer screening 01/25/2005 Covid-19 vaccine series ( season) 2024 Breast cancer screening 2024 Lipid disorder screening 2024 Influenza vaccine 01/13/2025 02/17/2020, , 01/29/2018, Additional history exists Tetanus adult (Td q 10,TDAP once) 02/16/2030 02/17/2020, 07/31/2013 RSV Immunization (1 - 1-dose 75+ series) 01/25/2059 Meningococcal Vaccine Aged Out No jeffery tyesha eligible based on patient's age to complete this topic Pneumococcal Vaccine (2 - 49 years) Aged Out No longer eligible based on patient's age to complete this topic Insurance BCBS BS Care Teams Software Project Manager Relationship Specialty Start Date End Date Gilma Jacobs MD [facility] [place] [address] PCP - General Internal Medicine 02/02/24
--- OUTSIDE RECORDS SUMMARY | 2024-08-21 14:04 | XMS_ITS | Clinical Summary ---
Author Organization [facility] Address [address] [place] [address] Care Team Providers Care Optical Instrument Repairer Name Role Phone Gilma Jacobs MD Primary Care Provider [phone] Allergies No known active allergies Medications Medication [...] age to complete this topic Care Teams Optical Instrument Repairer Relationship Specialty Start Date End Date Gilma Jacobs MD [address] [place] [address] PCP - General 12/01/22
== END 2024-08-21 12:16 | disposition home or self-care (01) ==
LOC: HO.HMCC 11:56
PROVIDERS: PCP Internal Medicine; Visit Provider Internal Medicine
DX: Z01.419 Encounter for gynecological examination (general) (routine) without abnormal findings (principal); E66.3 Overweight; Z00.00 Encounter for general adult medical examination without abnormal findings; F41.9 Anxiety disorder, unspecified

== ENCOUNTER → 2024-08-21 11:56 | Outpatient (BNVA) | payer BC, SELFPAY | PROVIDERS: PCP Internal Medicine; Visit Provider Internal Medicine | DX: Z00.00 Encounter for general adult medical examination without abnormal findings (principal); E66.3 Overweight; Z68.29 Body mass index [BMI] 29.0-29.9, adult; F41.9 Anxiety disorder, unspecified; Z79.899 Other long term (current) drug therapy | CPT/HCPCS: 96127 ==

== ENCOUNTER 2024-12-10 10:44 | Outpatient (AMB) | payer BC, SELFPAY ==
[2024-12-10 10:50] VITALS: BP 122/80; PULSE 84; RESP 18; TEMP 36.8; O2SAT 99; BMI 26.5
--- NOTE | 2024-12-10 10:50 | MHC.PC.OV ---
Vital Signs 12/10/24 10:50 Height 5 ft 5 in Weight 159 lb BMI 26.5 BP 122/80 Blood Pressure Location Lt brachial Position Sitting Respiration 18 Pulse 84 Pulse Source Pulse Oximeter Temp 98.2 F Temp Source Oral Pulse Oximetry (%) 99 Oxygen Delivery Method Room Air Intake Visit Reasons: 3 months f/up Intake Note: Pt is here today for 3 months follow up visit. Allergies misoprostol Allergy (Verified 12/10/24 10:50) high fever Medication List - Last Reconciled 12/10/24 by Gilma Jacobs MD cetirizine (Zyrtec) 10 mg PO DAILY PRN norethindrone acetate mg PO sertraline 75 mg (1.5 x 50 mg) PO DAILY Wegovy (semaglutide (weight loss)) 1.7 mg (0.75 mL) subcut QWEEK NS Wegovy (semaglutide (weight loss)) 1 mg (0.5 mL) subcut Q7D NS Tobacco use date assessed: 12/10/24 Dental Screening Dental Screen Date: 06/20/24 HPI 3 months f/up HPI Details Patient presents for the follow-up. She has been on 1.7 mg of Wegovy for the last 2 weeks but she lost her injections. after taking the injections she developed 2 days of stomach upset nausea. Patient has been decreasing caloric intake exercising regularly. She lost 20 lb since July. Chronic anxiety is stable on sertraline [facility] Medical History (Updated 12/10/24 @ 16:25 by Gilma Jacobs MD) Overweight Anxiety Headache Annual physical exam Left eye pain Surgical History No pertinent past surgical history Family History Father No problems noted. Mother No problems noted. 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, teacher Housing: House Patient Tobacco Use Status: Never used Tobacco e-Cigarette/Vaping Use: Never Used Second Hand Smoke Exposure: No service: No Current occupational status: employed Cognitive needs: No Hearing needs: No Vision needs: Yes Questionnaire Thrive Questionnaire Date Thrive assessed: 06/13/24 I am a: Patient What is your living situation today?: I have a steady place to live Within the past 12 months, did the food you bought not last and you didn't have the money to get more?: Never true Within the past 12 months, did you worry whether your food would run out before you got money to buy more?: Never true Do you have trouble paying for medicines?: No Do you have trouble getting transportation to medical appointments?: No Do you have trouble paying your heating and electricity bill?: No Do you have trouble taking care of your child, family member or friend?: No Do you have trouble with day-to-day activities such as bathing, preparing meals, shopping, managing finances, etc.?: No Are you currently unemployed and looking for a job?: No Are you interested in more education?: No Please select the resources that you would like help with: None Currently or been in a relationship where the following occur: No concerns reported THRIVE Score: 0 SILVIO-7 AMB Questionnaire SILVIO-7 Date SILVIO - 7 assessed: 08/21/24 Source: Developed by Drs. Silverio Madrigal, Jessenia Amor, Lucas Bishop and colleagues, with an educational judith from [employer]. Review of Systems Const All systems reviewed & are unremarkable except as noted in HPI and below ENT Reports no additional complaints Card Reports no additional complaints Resp Reports no additional complaints GI Reports no additional complaints Reports no additional complaints Physical exam (Primary Care) Vital Signs: Last Vital Signs Temp 98.2 F 12/10/24 10:50 Pulse 84 12/10/24 10:50 Resp 18 12/10/24 10:50 BP 122/80 12/10/24 10:50 Pulse Ox 99 12/10/24 10:50 Oxygen Delivery Method Room Air 12/10/24 10:50 BMI result Body Mass Index 26.5 Tobacco/Smoking Status: Tobacco use Status Tobacco use date assessed 12/10/24 12/10/24 10:51 Patient Tobacco Use Status Never used Tobacco 12/10/24 10:51 e-Cigarette/Vaping Use Never Used 12/10/24 10:51 Thrive Assessment: Date of Thrive Assessment Date Thrive assessed 06/13/24 12/10/24 10:51 Currently or been in a relationship where the following occur: No concerns reported Const General: no acute distress HENMT Mouth: Normal oral and palatal mucosa present Resp Effort & Inspection: normal respiratory effort Auscultation: clear to auscultation bilaterally Cardio Rhythm: regular rhythm Heart sounds: S1 normal heart sound present and S2 normal heart sound present GI Inspection: Yes normal to inspection Palpation (GI): Soft to palpation Percussion: Yes normal to percussion Coding Level of Care Code Est Pt Level 4 (43557) Diagnoses Anxiety F41.9 Overweight E66.3 Assessment & Plan Assessment & Plan (1) Anxiety: Comment: Controlled on sertraline Code(s): F41.9 - Anxiety disorder, unspecified Category: Medical Plan: Continue Zoloft and counseling was recommended (2) Overweight: Comment: BMI 30.1 06/2024, started on Wegovy July 2024 Code(s): E66.3 - Overweight Category: Medical Plan: Continue 1.7 mg of Wegovy follow-up in 3 months Medications: New Wegovy (semaglutide (weight loss)) 1.7 mg (0.75 mL) subcut QWEEK 3 mL 2RF NS semaglutide 4 ml subcutaneously; 16 mL 0RF
--- OUTSIDE RECORDS SUMMARY | 2024-12-10 11:54 | XMS_ITS | Clinical Summary ---
Author Organization [address] Address [address] [place] [id number] Care Team Providers Care Process Control Specialist Name Role Phone Gilma Jacobs MD Primary Care Provider [phone] Allergies No known active allergies Medications sertraline [...] 80 02/02/2024 12:51 PM EDT Temperature 36.8 C (98.3 F) 02/02/2024 12:51 PM EDT Respiratory Rate 16 02/02/2024 12:51 PM EDT [...] Payer ID:[id number] (NAIC) Type:Not on file Address: [facility] [address] [id number] Care Teams Process Control Specialist Relationship Specialty Start Date End Date Gilma Jacobs MD [facility] [place] [address] PCP - General Internal Medicine 02/02/24
--- OUTSIDE RECORDS SUMMARY | 2024-12-10 11:54 | XMS_ITS ---
Author Name [facility] Organization Unknown History of Medication Use Medication Directions Dispensed Refills Start Date End Date Stat us sertraline (ZOLOFT) 50 mg tablet Take 1 tablet (50 mg total) by mouth daily. 11/26/2023 active sertraline (ZOLOFT) 50 MG tablet Take 50 mg by mouth daily. 11/16/2022 active rimegepant (Nurtec) 75 mg disintegrating tablet Take 75 mg by mouth. 07/21/2022 03/24/2023 active Multiple Vitamin (multivitamin) capsule Take 1 capsule by mouth daily. active Problems Problem Status Onset Date Problem Type Date of Resoluti on Source Acute non-recurrent frontal sinusitis active 2024-02-02 ProblemAct [facility] S[facility] throat [facility] Encounters Encounter Type Encounter Reason Primary Diagnosis Location Date Ambulatory Sinus Problem Sinus Problem [facility] Ambulatory Acute pharyngiti s, unspecified [facility] 12/01/2022 Care Team Organization Name Specialty Phone Email Start Date End Da te [facility] Gilma Jacobs Primary Care 01/14 [facility] Gilma Jacobs Primary Care 12/01/2022 12/02/19 [facility] GILMA JACOBS Primary Care 12/01/2022
--- OUTSIDE RECORDS SUMMARY | 2024-12-10 11:54 | XMS_ITS | Clinical Summary ---
Author Organization [facility] Address [address] [place] [address] Care Team Providers Care Fashion Marketer Name Role Phone Gilma Jacobs MD Primary Care Provider [phone] Allergies No known active allergies Medications Multiple Vitamin (multivitamin) capsule Take 1 capsule by mouth daily. Active norethindrone (AYGESTIN) 5 MG tablet Take 5 mg by mouth daily. 10/19/2022 Active sertraline (ZOLOFT) 50 MG tablet Take 50 mg by mouth daily. 11/16/2022 Active Social History Tobacco Use Types Packs/Day Years Used Date Smoking Tobacco: Never Assessed Comments No Sex and Gender Information Value Date Recorded Sex Assigned at Not on file Legal Sex Female 6:52 PM EDT Gender Identity Not on file Sexual Orientation Not on file Last Filed Vital Signs Vital Sign Reading Time Taken Comments Blood Pressure 130/88 12/01/2022 6:58 PM EDT Pulse 84 12/01/2022 6:58 PM EDT Temperature 37.4 C (99.4 F) 12/01/2022 6:58 PM EDT Respiratory Rate - - Oxygen Saturation 97% [...] series) 01/25/2003 Pap Smear (Ages 21-65) 01/25/2005 COVID-19 Vaccine ( - 2023-25 season) 2024 Mammogram 2024 Influenza Vaccine 12/13/2024 02/17/2020, , 01/29/2018, Additional history exists HPV Vaccines Aged Out No longer eligi ble based on patient's age to complete this topic Pneumococcal Vaccine: Pediatric (0-5 Years) and At-Risk Patients (6 to 49 Years) Aged Out No longer eligible based on patient's age to complete this topic Insurance [facility] - HMO Care Teams Fashion Marketer Relationship Specialty Start Date End Date Gilma Jacobs MD [address] [place] [address] PCP - General 12/01/22
== END 2024-12-10 12:57 | disposition home or self-care (01) ==
LOC: HO.HMCC 10:45
PROVIDERS: PCP Internal Medicine; Visit Provider Internal Medicine
DX: F41.9 Anxiety disorder, unspecified (principal); E66.3 Overweight

== ENCOUNTER 2025-03-19 13:51 | Outpatient (AMB) | payer BC, SELFPAY ==
--- OUTSIDE RECORDS SUMMARY | 2025-03-16 09:45 | XMS_ITS | Encounter Summary ---
Author Organization [facility] Address [address] [place] [address] Care Team Providers Care Swimming Pool Maintenance Supervisor Name Role Phone Gilma Jacobs MD Primary Care Provider [phone] Reason for Visit * Reason Comments Sinusitis Headache pressure, p ost nasal drip bilateral ear pressure for 3 days Encounter Details Date Type Department Care Team (Late st Contact Info) Description 03/16/2025 9:45 AM EST Office Visit [facility] [address] [place] [id number] Robby Vergara MD [address] [place] [address] Nikia Elliott APRN [address] [place] [address] Acute bacterial sinusitis (Primary Dx) Social History Tobacco Use Types Packs/Day Years Used Date Smoking Tobacco: Never Assessed Comments No Sex and Gender Information Value Date Recorded Sex Assigned at Not on file Legal Sex Female 6:52 PM EDT Gender Identity Not on file Sexual Orientation Not on file documented as of this encounter Last Filed Vital Signs Vital Sign Reading Time Taken Comments Blood Pressure 131/89 03/16/2025 9:50 AM EST Pulse 86 03/16/2025 9:50 AM EST Temperature 36.9 C (98.5 F) 03/16/2025 9:50 AM EST Respiratory Rate 18 03/16/2025 9:50 AM EST Oxygen Saturation 97% 03/16/2025 9:50 AM EST Inhaled Oxygen Concentration - - Weight - - Height - - Body Mass Index - - documented in this encounter Progress Notes * Nikia Elliott, COSMETIC SALES ADVISOR - 03/16/2025 10:09 AM EST Assessment & Plan & Data Synthesis Dominic was seen today for sinusitis. Diagnoses and all orders for this visit: Acute bacterial sinusitis - amoxicillin-clavulanate (AUGMENTIN) 875-125 MG per tablet; Take 1 tablet by mouth 2 (two) times aday. Medical Decision Making: Patient with sinus pain in setting of recent URI. Considering lack of improvement with conservativetreatment, doubling of symptoms and length of time of symptoms we will cover with an antibiotic. Advised this may still be viral and conservative management is encouraged in conjunction with the antibiotics. I considered dental disease, allergic rhinitis, mastoiditis, headache (tension, cluster, migraine),GABHS, OM, Plan: - begin treatments discussed- tylenol, motrin, decongestants, limited Afrin, mucinex, antihistamines, nasal steroids, - continue supportive care- fluids, rest, steam inhalation 20-30 minutes TID, sinus irrigation, sleep with head of bed elevated - Return to UC/PCP if no improvement after 72 hours, or no resolution of symtpoms after 10 days antibiotics Communication barriers and lifestyle preferences were addressed with the patient. The care plan including medications and self-management goals were reviewed to the best of the patient's ability. Allquestions and concerns were answered. Patient and/or family verbalized understanding of the plan ofcare. Subjective History of present illness: Dominic Morris is a 40 y.o. female HPI Chief Complaint: sinus pressure/tenderness, eye pressure, cough, facial pain/fullness, and ear pain, sore throat Location: upper respiratory Duration: 7 days Context: Acute Severity: moderate Patient presents to urgent care for evaluation of worsening sinus pain and pressure, eye pressure, sore throat, cough, ear pain. States symptoms started 7 days ago, was tolerable until 3 days ago when symptoms started to worsen. She denies fever. Using Advil for discomfort with no relief in symptoms. She was seen at a different urgent care yesterday, rapid strep negative at that time. I have reviewed the patients medications, allergies, past medical history, social history and family history as documented. History reviewed. No pertinent past medical history. History reviewed. No pertinent surgical history. Social History[1] History reviewed. No pertinent family history. Review of Systems: Constitutional: reports recent illness ENT: reports sore throat, reports ear pain Respiratory: denies shortness of breath Gastrointestinal: denies abdominal pain, nausea or vomiting. Neurologic: reports headache Musculoskeletal: denies muscle aches. Objective Vitals: 03/16/25 0950 BP: 131/89 Pulse: 86 Resp: 18 Temp: 98.5 ??F (36.9 ??C) SpO2: 97% Examination: General: well developed, well nourished, no acute distress. negative fever Eyes: Non-icteric sclera. No conjunctival injection. ENT: Oropharynx without pharyngeal erythema and PND, tonsils without exudate, no peritonsillar abscess. Uvula midline rises on phonation. Normal voice, moist mucous membranes. Nose: without purulent discharge, without edema/erythema of nasal mucosa Ears: without effusions of left or right middle ear, without erythema of the left or right TM. Frontal/maxillary sinuses: with moderate tenderness to palpation. Lungs: Breath sounds equal bilaterally. No adventitious sounds audible. Heart: No murmurs, RRR Extremities: Moving all extremities, well perfused. Skin: Warm and dry without visible rash. Lymphatic: No palpable lymphadenopathy. + tender nodes. 03/16/25 Nikia Elliott APRN 10:09 AM [1] documented in this encounter Plan of Treatment Not on file documented as of this encounter Visit Diagnoses Diagnosis Acute bacterial sinusitis- Primary Acute sinusitis, unspecified documented in this encounter Care Teams Swimming Pool Maintenance Supervisor Relationship Specialty Start Date End Date Gilma Jacobs MD [address] [place] [id number] PCP - General 12/01/22 documented as of this encounter
--- NOTE | 2025-03-19 14:10 | A.OFFPC_ITS ---
Vital Signs 03/19/25 14:11 Height 5 ft 5 in Weight 149 lb BMI 24.8 BP 126/80 Blood Pressure Location Lt brachial Position Sitting Respiration 15 Pulse 82 Pulse Source Pulse Oximeter Temp 98.6 F Temp Source Oral Pulse Oximetry (%) 96 Oxygen Delivery Method Room Air Intake Visit Reasons: 3m follow up Intake Note: Pt is here today for 3 months follow up visit on weight medication. Allergies misoprostol Allergy (Verified 03/19/25 14:12) high fever Medication List - Last Reconciled 03/19/25 by Gilma Jacobs MD cetirizine (Zyrtec) 10 mg PO DAILY PRN norethindrone acetate mg PO sertraline 75 mg (1.5 x 50 mg) PO DAILY Wegovy (semaglutide (weight loss)) 2.4 mg (0.75 mL) subcut QWEEK NS Tobacco use date assessed: 12/10/24 Dental Screening Dental Screen Date: 06/20/24 HPI 3m follow up HPI Details Pt presents for f/u of chronic anxiety, stable on sertraline. Patient has been taking Wegovy increase the dose to 2.5 mg weekly 3 weeks ago and has been tolerating medication well. Patient lost 10 lb since the last visit. She is planning to increase exercise including weightlifting. [facility] Medical History Overweight Anxiety Headache Annual physical exam Left eye pain Surgical History No pertinent past surgical history Family History Father No problems noted. Mother No problems noted. 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 1. Little interest or pleasure in doing things: several days 2. Feeling down, depressed, or hopeless: several days 3. Trouble falling or staying asleep, or sleeping too much: more than half the days 4. Feeling tired or having little energy: more than half the days 5. Poor appetite or overeating: not at all 6. Feeling bad about yourself - or that you are a failure or have let yourself or your family down: not at all 7. Trouble concentrating on things, such as reading the newspaper or watching television: not at all 8. Moving or speaking so slowly that other people could have noticed. Or the opposite - being so fidgety or restless that you have been moving around a lot more than usual: not at all 9. Thoughts that you would be better off or of hurting yourself in some way: not at all Total score: 6 Depression Screening Interpretation: Negative (Referred to a counselor continue sertraline) Depression Screening Done: Yes Source: Developed by Drs. Silverio Madrigal, Jessenia Amor, Lucas Bishop and colleagues, with an educational judith from [employer]. Thrive Questionnaire Date Thrive assessed: 06/13/24 I am a: Patient What is your living situation today?: I have a steady place to live Within the past 12 months, did the food you bought not last and you didn't have the money to get more?: Never true Within the past 12 months, did you worry whether your food would run out before you got money to buy more?: Never true Do you have trouble paying for medicines?: No Do you have trouble getting transportation to medical appointments?: No Do you have trouble paying your heating and electricity bill?: No Do you have trouble taking care of your child, family member or friend?: No Do you have trouble with day-to-day activities such as bathing, preparing meals, shopping, managing finances, etc.?: No Are you currently unemployed and looking for a job?: No Are you interested in more education?: No Please select the resources that you would like help with: None Currently or been in a relationship where the following occur: No concerns reported THRIVE Score: 0 SILVIO-7 AMB Questionnaire SILVIO-7 Date SILVIO - 7 assessed: 08/21/24 Source: Developed by Drs. Silverio Madrigal, Jessenia Amor, Lucas Bishop and colleagues, with an educational judith from [employer]. Review of Systems Const All systems reviewed & are unremarkable except as noted in HPI and below ENT Reports no additional complaints Card Reports no additional complaints Resp Reports no additional complaints GI Reports no additional complaints Reports no additional complaints Physical exam (Primary Care) Vital Signs: Last Vital Signs Temp 98.6 F 03/19/25 14:11 Pulse 82 03/19/25 14:11 Resp 15 03/19/25 14:11 BP 126/80 03/19/25 14:11 Pulse Ox 96 03/19/25 14:11 Oxygen Delivery Method Room Air 03/19/25 14:11 BMI result Body Mass Index 24.8 Tobacco/Smoking Status: Tobacco use Status Tobacco use date assessed 12/10/24 03/19/25 14:11 Patient Tobacco Use Status Never used Tobacco 03/19/25 14:11 e-Cigarette/Vaping Use Never Used 03/19/25 14:11 PHQ-9: PHQ-9 Score PHQ-9: Total score 6 03/19/25 14:29 Depression Screening Interpretation: Negative (Referred to a counselor continue sertraline) Thrive Assessment: Date of Thrive Assessment Date Thrive assessed 06/13/24 03/19/25 14:11 Currently or been in a relationship where the following occur: No concerns reported Const General: no acute distress HENMT Throat: Yes posterior oropharynx normal Neck Neck: Yes supple Resp Effort & Inspection: normal respiratory effort Auscultation: clear to auscultation bilaterally Cardio Rhythm: regular rhythm Heart sounds: S1 normal heart sound present and S2 normal heart sound present Coding Level of Care Code Est Pt Level 4 (22723) Diagnoses Anxiety F41.9 Overweight E66.3 Assessment & Plan Assessment & Plan (1) Anxiety: Comment: Controlled on sertraline Code(s): F41.9 - Anxiety disorder, unspecified Category: Medical Plan: Continue sertraline (2) Overweight: Comment: BMI 30.1 06/2024, started on Wegovy July 2024, lost 30 lb until 03/2025 Code(s): E66.3 - Overweight Category: Medical Plan: Patient will continue 2.4 mg of Wegovy, continue well-balanced diet regular physical activity follow-up in August for physical
[2025-03-19 14:11] VITALS: BP 126/80; PULSE 82; RESP 15; TEMP 37; O2SAT 96; BMI 24.8
--- OUTSIDE RECORDS SUMMARY | 2025-03-19 17:03 | XMS_ITS | Clinical Summary ---
Author Organization [address] Address [address] [place] [id number] Care Team Providers Care Weekend Receptionist Name Role Phone Gilma Jacobs MD Primary Care Provider [phone] Allergies No known active allergies Medications sertraline [...] C screening 01/25/2002 Cervical cancer screening 01/25/2005 Breast cancer screening 2024 Lipid disorder screening 2024 Influenza vaccine 12/13/2024 02/17/2020, , 01/29/2018, Additional history exists Covid-19 vaccine series (2024- season) 2025 Tetanus adult (Td q 10,TDAP once) 02/16/2030 02/17/2020, 07/31/2013 RSV Immunization (1 - 1-dose 75+ series) 01/25/2059 Meningococcal B Vaccine Aged Out No l onger eligible based on patient's age to complete this topic Meningococcal Vaccine Aged Out No jeffery tyesha eligible based on patient's age to complete this topic Pneumococcal Vaccine (2 - 49 years) Aged Out No longer eligible based on patient's age to complete this topic Insurance BCBS BCBS [facility] Care Teams Weekend Receptionist Relationship Specialty Start Date End Date Gilma Jacobs MD [address] [place] [id number] PCP - General Internal Medicine 02/02/24
--- OUTSIDE RECORDS SUMMARY | 2025-03-19 17:03 | XMS_ITS | Clinical Summary ---
Author Organization [facility] Address [address] [place] [address] Care Team Providers Care Retail Mortgage Banker Name Role Phone Gilma Jacobs MD Primary Care Provider [phone] Allergies No known active allergies Medications Multiple Vitamin (multivitamin) capsule Take 1 capsule by mouth daily. Active norethindrone (AYGESTIN) 5 MG tablet Take 5 mg by mouth daily. 10/19/2022 Active sertraline (ZOLOFT) 50 MG tablet Take 50 mg by mouth daily. 11/16/2022 Active amoxicillin-cla vulanate (AUGMENTIN) 875-125 MG per tabletIndicatio ns:Acute bacterial sinusitis Take 1 tablet by mouth 2 (two) times a day. 20 tablet 03/16/2025 5 Active Active Problems No known active problems Encounters Date Type Department Care Team Description 03/16/2025 9:45 AM EST Office Visit [facility] [address] [place] [id number] Robby Vergara MD Burns, Autumn E, APRN Acute bacterial sinusitis (Primary Dx) from Last 3 Months Social History Tobacco Use Types Packs/Day Years [...] EST Inhaled Oxygen Concentration - - Weight 70.3 [...] series) 01/25/2003 Pap Smear (Ages 21-65) 01/25/2005 Mammogram 2024 Influenza Vaccine 12/13/2024 02/17/2020, , 03/18/2019, Additional history exists COVID-19 Vaccine (2023- season) 2025 HPV Vaccines (No Doses Required) Completed Pneumococcal Vaccine: Pediatric (0-5 Years) and At-Risk Patients (6 to 49 Years) Aged Out No longer eligible based on patient's age to complete this topic Insurance [facility] [place] Care Teams Retail Mortgage Banker Relationship Specialty Start Date End Date Gilma Jacobs MD [address] [place], [place] [id number] PCP - General 12/01/22
== END 2025-03-19 15:08 | disposition home or self-care (01) ==
LOC: HO.HMCC 13:52
PROVIDERS: PCP Internal Medicine; Visit Provider Internal Medicine
DX: F41.9 Anxiety disorder, unspecified (principal); E66.3 Overweight